=== PATIENT | male | born 1985 | race Caucasian/White ===

== ENCOUNTER → 2022-05-07 | Outpatient (CLI) | payer OTHER, SELFPAY ==
--- NOTE | 2022-05-06 15:00 | VAS_PTH ---
PATIENT: NENITA BARRIENTOS [facility] U#:[id number] AGE/SX: 36/M ROOM: RE05/07/[address]: Dr. Nathaniel Fulton MD : 1985 BED: DIS: 05/07/2022 SPEC #: [id number] RECD: 05/07/22 09:45 STATUS: AMADOR HOPKINS #: [id number] JIMY: 05/06/22 15:[address]: Nathaniel Fulton DEPT: SURGICAL PATHOLOGY RECD BY: Dago Carrillo Tissues: A - Vas deferens, NOS B - Vas deferens, NOS Procedures: Surgery Specimen Level II HEADER OPERATION: Bilateral partial vasectomy PRE-OP DIAGNOSIS: Sterilization TISSUE SUBMITTED: A ? Right vas deferens, B ? Left vas deferens MICROSCOPIC DIAGNOSIS A. Right vas deferens, segmental vasectomy: Complete cross-section of vas deferens with no pathologic change. B. Left vas deferens, segmental vasectomy: Complete cross-section of vas deferens with no pathologic change. AM:belle 05/11/2022 MICROSCOPIC DESCRIPTION Slides are reviewed. GROSS DESCRIPTION A - Received is one container designated right vas deferens. The specimen consists of a tubular segment of gutiérrez soft tissue measuring 1.3 cm in length and 0.2 cm in diameter. The specimen is sectioned and submitted entirely in one cassette. B - Received is one container designated left vas deferens. The specimen consists of a tubular segment of gutiérrez soft tissue measuring 1 cm in length and 0.2 cm in diameter. The specimen is sectioned and submitted entirely in one cassette. / SHARONDA:belle 05/07/2022 TC:4 CPT: 13617 x2
== END | disposition home or self-care (01) ==
LOC: LABSPEC 09:58
PROVIDERS: Referring Provider Surgery; Visit Provider Surgery
DX: Z30.2 Encounter for sterilization (principal); Z98.52 Vasectomy status
CPT/HCPCS: 88302

== ENCOUNTER → 2022-06-02 | Outpatient (CLI) | payer OTHER, SELFPAY ==
[2022-06-02 08:51] LABS: Semen Analysis Post Vas ABSENT
[2022-06-02 13:45] LABS: Pathologist Review Reviewed
== END | disposition home or self-care (01) ==
LOC: LABSPEC 06:26
PROVIDERS: Referring Provider Surgery; Visit Provider Surgery
DX: Z30.09 Encounter for other general counseling and advice on contraception (principal)
CPT/HCPCS: 89321

== ENCOUNTER → 2022-06-15 | Outpatient (CLI) | payer OTHER, SELFPAY ==
[2022-06-15 10:32] LABS: Semen Analysis Post Vas ABSENT
[2022-06-16 12:32] LABS: Pathologist Review Reviewed
== END | disposition home or self-care (01) ==
LOC: LABSPEC 06:11
PROVIDERS: Visit Provider Surgery
DX: Z30.09 Encounter for other general counseling and advice on contraception (principal)
CPT/HCPCS: 89321